=== PATIENT | male | born 1990 | race Caucasian/White ===

== ENCOUNTER 2017-10-07 23:04 | Emergency (ER) | payer OTHER ==
[2017-10-07 23:08] VITALS: BMI 28.6
--- NOTE | 2017-10-07 23:30 | PDOC ---
Attending Attestation - Resident Resident Name: RichardmorenitaparveenServando - ED Attending Attestation I have performed the following: I have examined & evaluated the patient, The case was reviewed & discussed with the resident, I agree w/resident's findings & plan - HPI HPI: 10/08/17 00:35 Pt has sore throat, fevers headache and decreased appetite and vomiting x a few days -states that he took two doses of tylenol in the last 4 days, but only 325 mg tylenol at a time, which is a grossly subtherapeutic dose. Pt was fiven percocet and fluid in the ER and he already feels great. Pt has fever here. Pt appears well otherwise. His neuro exam is normal. He has no neck stiffness. - Physicial Exam PE: 10/08/17 00:37 [facility] resident exam - Medical Decision Making 10/08/17 00:37 Pt will have basic labs, as he has had nothing to eat x 5 days and supposedly vomiting everything. He will be hydrated and treated with antipyretics. Pt will get a strep culture. Pt will aslo have a CXR, as he has enlarged lynph nodes in the neck and we want to make sure that he has no perihilar nodes. 10/08/17 02:09 Rapid strep is normal. Pt's labs are normal excet for a WBC of 12.9 Pt will receive a 2nd L of NSS Then we will reeval and send mariano home with instructions of when to return 10/08/17 03:33 Pt's vitals are improved. He feels great and he will go home.
[2017-10-07] MEDS ORDERED: SODIUM CHLORIDE 0.9% 1000 ML INFUS.BAG IV ONE (23:39)
[2017-10-07] MEDS ORDERED: ACETAMINOPHEN 1000 MG/100 ML VIAL (NON FORMULARY) IVPB ONE (23:39)
[2017-10-07] MEDS ORDERED: ACETAMINOPHEN INJECTION 100 ML IVPB ONE (23:56)
[2017-10-08 00:36] LABS: BASO % 0.3 % (0-2.0); EOS % 0.6 % (0-4.5); HEMATOCRIT 40.7 % (35.4-49); HEMOGLOBIN 14.1 GM/dL (11.7-16.9); LYMPH % 20.4 % (8-40); MCH 26.7 pg (25.7-33.7); MCHC 34.5 g/dl (32.0-35.9); MEAN CELL VOLUME 77.5 fl (80-96); MEAN PLT VOLUME 7.4 fl (7.5-11.1); MONO % 9.1 % (3.8-10.2); NEUT % 69.6 % (42.8-82.8); PLATELET COUNT 242 K/MM3 (134-434); RBC 5.26 M/mm3 (4.00-5.60); RDW 12.9 % (11.9-15.9); WHITE BLOOD COUNT 12.2 K/mm3 (4.0-10.0)
--- NOTE | 2017-10-08 00:53 | PDOC ---
History of Present Illness - General Chief Complaint: Head/Neck problem Stated Complaint: NECK PAIN Time Seen by Provider: 10/07/17 23:17 History Source: Patient Exam Limitations: No Limitations - History of Present Illness Initial Comments: 10/08/17 00:23 The patient is a 27M with no PMH who is presenting with b/l neck pain anteriorly , headache, and cough. The patient states that he had a fever with these symptoms since last Sunday, took tamiflu, and felt better. However, he states that since Sunday, he developed b/l anterior neck pain and swelling. He says the pain has become so severe that he called off work and is having difficulty sleeping. He denies current fevers but states he has a headache every time he coughs. Past History - Past Medical History Allergies/Adverse Reactions: Allergies Allergy/AdvReac Type Severity Reaction Status Date / Time No Known Allergies Allergy Verified 10/07/17 23:06 Home Medications: Ambulatory Orders NK [No Known Home Medication] 10/08/17 COPD: No - Suicide/Smoking/Psychosocial Hx Smoking History: Never smoked Review of Systems - Review of Systems Able to Perform ROS?: Yes Comments:: 10/08/17 02:01 GENERAL/CONSTITUTIONAL: No fever or chills. No weakness. HEAD, EYES, EARS, NOSE AND THROAT: Positive for neck pain and sore throat. No change in vision. No ear pain or discharge. CARDIOVASCULAR: No chest pain, palpitations, or lightheadedness. RESPIRATORY: No cough, wheezing, shortness of breath, or hemoptysis. GASTROINTESTINAL: No nausea, vomiting, diarrhea, constipation, or abdominal pain. GENITOURINARY: No dysuria, frequency, hematuria, or change in urination. MUSCULOSKELETAL: No joint or muscle swelling or pain. No neck or back pain. SKIN: No rash or lesions. NEUROLOGIC: No headache, numbness, tingling, weakness, loss of consciousness, or change in strength/sensation. ENDOCRINE: No increased thirst. No abnormal weight change. HEMATOLOGIC/LYMPHATIC: No anemia, easy bleeding, or history of blood clots. ALLERGIC/IMMUNOLOGIC: No hives or skin allergy. Is the patient limited German proficient: No *Physical Exam - Vital Signs Last Vital Signs Temp Pulse Resp BP Pulse Ox 99.8 F H 129 H 18 141/93 10 L 10/07/17 23:06 10/07/17 23:06 10/07/17 23:06 10/07/17 23:06 10/07/17 23:06 - Physical Exam Comments: 10/08/17 02:01 GENERAL: Well developed, well nourished. Awake and alert. No acute distress. HEENT: Normocephalic, atraumatic. Hearing grossly normal. Moist mucous membranes. PERRLA, EOMI. No conjunctival pallor. Sclera are non-icteric. Oropharynx is erythematous with no exudates; tonsils are enlarged. NECK: Tender to palpation over cervical LN. Full ROM. No JVD. CARDIOVASCULAR: Regular rate and rhythm. No murmurs, rubs, or gallops. PULMONARY: No evidence of respiratory distress. Lungs clear to auscultation bilaterally. No wheezing, rales or rhonchi. ABDOMINAL: Soft. Non-tender. Non-distended. No rebound or guarding. No organomegaly. Normoactive bowel sounds. GENITOURINARY: No CVA tenderness bilaterally. MUSCULOSKELETAL: Normal range of motion at all joints. No bony deformities or tenderness. EXTREMITIES: No cyanosis. No clubbing. No edema. No calf tenderness. SKIN: Warm and dry. Normal capillary refill. No rashes. No jaundice. NEUROLOGICAL: Alert, awake, appropriate. Cranial nerves 2-12 intact. Normal speech. Gait is normal without ataxia. PSYCHIATRIC: Cooperative. Good eye contact. Appropriate mood and affect. ED Treatment Course - LABORATORY CBC & Chemistry Diagram: 10/08/17 00:30 10/08/17 00:30 - Medications Given in the ED: ED Medications Discontinued Medications Generic Name Dose Route Start Last Admin Trade Name Lakesha PRN Reason Stop Dose Admin Acetaminophen 1,000 mg 10/07/17 23:39 10/08/17 00:10 Ofirmev Injection - IVPB 10/07/17 23:40 1,000 mg ONCE ONE Administration Oxycodone/Acetaminophen 2 combo 10/07/17 23:31 10/07/17 23:46 Percocet 5/325 - PO 10/07/17 23:32 2 combo ONCE ONE Administration Sodium Chloride 1,000 ml 10/07/17 23:39 10/08/17 00:09 Normal Saline - IV 10/07/17 23:40 1,000 ml ONCE ONE Administration Medical Decision Making - Medical Decision Making 10/08/17 02:02 The patient is a 27M with no PMH who presents with tender lymphadenopathy after having the flu. WBC slightly elevated. CXR negative for pathology. Pt denies any posterior neck pain, neck stiffness, and had a negative Kernig and Brudzinski's test. No petechial rash noted. Pt states his headache is only occuring when he coughs. There is very low likelihood for meningitis. Will give 1 L fluids and IV acetaminophen. Pt states he feels better and is ready for d/c. *DC/Admit/Observation/Transfer Diagnosis at time of Disposition: Neck pain - Discharge Dispostion Disposition: HOME Condition at time of disposition: Stable Admit: No - Referrals Referrals: Bacilio Briseno MD [Primary Care Provider] - - Patient Instructions Printed Discharge Instructions: Influenza Additional Instructions: Please return to the ER if you have any signs or symptoms of chest pain, shortness of breath, uncontrollable fever, chills, nausea, vomiting, numbness, tingling, or weakness in any part of your body, changes in vision, or slurred speech. Please follow up with your primary care physician in 2-3 days. Please return to the ER if symptoms persist, worsen, or new symptoms arise. - Post Discharge Activity
[2017-10-08 01:11] LABS: ALBUMIN 3.9 g/dl (3.4-5.0); ALK PHOS 84 U/L (45-117); ANION GAP 12 (8-16); BILIRUBIN,TOTAL 0.7 mg/dL (0.2-1.0); BLOOD UREA NITROGEN 15 mg/dL (7-18); CHLORIDE 99 mmol/L (98-107); CO2 26 mmol/L (21-32); CREATININE 1.4 mg/dL (0.7-1.3); GLUCOSE,RANDOM 93 mg/dL (74-106); SGOT/AST 28 U/L (15-37); SGPT/ALT 33 U/L (12-78); SODIUM 137 mmol/L (136-145); TOT PROT 8.2 g/dl (6.4-8.2)
[2017-10-08] MEDS ORDERED: SODIUM CHLORIDE 0.9% 500 ML INFUS.BAG IV ONE (02:08)
[2017-10-08 03:45] VITALS: BP 126/85; PULSE 18; TEMP 98.1
== END 2017-10-08 03:52 | disposition home or self-care (01) ==
LOC: JER 23:04
PROC: 3E033NZ Introduction of Analgesics, Hypnotics, Sedatives into Peripheral Vein, Percutaneous Approach (ICD-10-PCS; principal; 2017-10-07)
DX: R59.0 Localized enlarged lymph nodes (principal); M54.2 Cervicalgia
CPT/HCPCS: 36415; 71046-TC-FY; 80053; 85025; 87070; 87077; 87430; 96374; 99281-25; J0131; J7030